=== PATIENT | female | born 1980 | race Two or more races ===

== ENCOUNTER 2016-11-06 22:18 | Emergency (ER) | payer OTHER ==
--- NOTE | ~2016-11-06 | EKG ---
PATIENT: PABLO STUART UNIT #: [id number] Ventricular Rate: 65 BPM Atrial Rate: 65 BPM P-R Interval: 166 ms QRS Duration: 90 ms Q-T Interval: 428 ms QTC Calculation(Bezet): 445 ms P [place]: 37 degrees Calculated R [place]: 12 degrees Calculated T [place]: 31 degrees Diagnosis Line: Normal sinus rhythm Diagnosis Line: Normal ECG Diagnosis Line: No previous ECGs available Diagnosis Line: Confirmed by ERIKA TY MD ([id number]) on 11/08/2016 Diagnosis Line: 9:55:44 AM INTERPRETING MD: KARSON GARCIA
--- NOTE | ~2016-11-06 | CR72 ---
[facility] A Service of [facility] & [facility] RADIOLOGY TEXT RESULTS PATIENT: PABLO STUART LOCATION: [facility] : 76 UNIT #: [id number] AGE: [address]: Becka Silva MD SEX: F ORDER DR: [id number] [place], [place] [address] [id number] MR#: [id number] Acc #: [id number] NAME: PABLO STUART : 1980 SEX: F STUDY DATE/TIME: 11/06/2016 21:53 UNIT: [facility] ROOM: STUDY DESCRIPTION: CR Chest Single View Portable Attending Physician: Becka Silva M.D. Ordering Physician: Becka Silva M.D. Primary Care Physician: No Primary Care Physician MEDICAL IMAGING REPORT This report is preliminary unless electronic signature is present EXAM Portable chest 11/06/2016 HISTORY 36-year-old female with shortness of air for 4 days. COMPARISON None. FINDINGS Frontal chest demonstrates clear lungs. No pleural effusion or pneumothorax. Heart size within normal limits. Pulmonary vasculature unremarkable. IMPRESSION No acute cardiopulmonary findings Dictated by... Eris Lin M.D. THIS IS AN ELECTRONICALLY VERIFIED REPORT Eris Lin M.D. at 11/07/2016 4:48 PM SHANNON/asad TD: 11/07/2016 03:21 JOB #: [id number] MEDICAL IMAGING REPORT Page 1 of 1 COPY
[2016-11-06 20:57] LABS: POC - CKMB 1.1 ng/mL (0.0-7.9); POC - TROPONIN <0.05 ng/mL (<=0.05)
[2016-11-06 21:47] LABS: URINE SOURCE CLEAN CATCH
[2016-11-06 22:00] LABS: BASOPHIL# 0.1 X10e3 (0-0.3); BASOPHIL% 0.8 % (0-2.5); EOSINOPHIL# 0.1 X10e3 (0-0.7); HEMOGLOBIN 13.1 gm/dL (12.0-16.0); LYMPHOCYTE# 2.5 X10e3 (1.0-3.5); LYMPHOCYTE% 35.2 % (17.0-45.0); MEAN CELL VOLUME 83.9 FL (83-96); MEAN CORPUSCULAR HEMOGLOBIN 27.3 PG (28-34); MEAN CORPUSCULAR HGB CONC 32.6 g/dL (30-36); MEAN PLATELET VOLUME 9.3 FL (6.5-11.5); MONOCYTE# 0.5 X10e3 (0-1.0); MONOCYTE% 7.7 % (3.0-12.0); NEUTROPHIL# 3.8 X10e3 (1.5-7.1); NEUTROPHIL% 54.3 % (40-75); PLATELET COUNT 298 X10e3 (140-420); RED BLOOD COUNT 4.77 X10e (3.90-5.30); RED CELL DISTRIBUTION WIDTH 14.2 % (11.0-15.5)
[2016-11-06 22:01] LABS: DIFF IND NO
[2016-11-06 22:14] LABS: CULTURE INDICATED? NO; URBCS1 AUWI 0-2 /[HPF] (0-2); URINE APPEARANCE TURBID; URINE BACTERIA AUWI NEG (NEGATIVE); URINE BILIRUBIN NEG (NEG); URINE BLOOD NEG (NEG); URINE COLOR YELLOW; URINE GLUCOSE NEG (NEG); URINE KETONE NEG (NEG); URINE LEUKOCYTE ESTERASE NEG (NEG); URINE NITRATE NEG (NEG); URINE PROTEIN TRACE (NEG); URINE SPECIFIC GRAVITY 1.024 (1.003-1.035); URINE SQUAMOUS EPITHELIAL CELL MANY /[HPF]; UWBCS1 AUWI 0-2 (0-5)
[2016-11-06 22:49] LABS: ALBUMIN SERUM 3.8 g/dL (3.5-5.0); BILIRUBIN, DIRECT 0.1 mg/dL (0.0-0.2); BILIRUBIN,INDIRECT 0.2 mg/dL (0.0-0.9); BILIRUBIN,TOTAL 0.3 mg/dL (0.2-2.0); BUN/CREATININE RATIO 13.33; CALCIUM SERUM 8.7 mg/dL (8.4-10.2); CREATININE SERUM 0.9 mg/dL (0.6-1.4); GLOM FILT RATE Estimated 81.2 mL/min (>60); POTASSIUM 3.5 mmol/L (3.5-5.1); PROTEIN TOTAL SERUM 7.4 g/dL (6.0-8.3)
== END 2016-11-07 00:47 | disposition home or self-care (01) ==
LOC: CED 22:18
PROVIDERS: Emergency Medicine
DX: R60.9 Edema, unspecified (principal); F32.9 Major depressive disorder, single episode, unspecified; Z98.51 Tubal ligation status
CPT/HCPCS: 36415; 71010; 80048; 80076; 81003; 82553; 82947; 84443; 84484; 84703; 85025; 85610; 93005; 99283